=== PATIENT | female | born 1940 | race Caucasian/White ===

== ENCOUNTER 2017-06-08 11:07 | Emergency (ER) | payer OTHER, MEDICARE ==
[~2017-06-08] VITALS: Ht 160 cm; Wt 97.6 kg
[~2017-06-08 11:07] MED LIST: FIORICET,ESG1 TABLET PO; ISOPTIN SR120 MG PO; LEVOTHYROXINE25 MCG PO; MEDROL DOSEPAK4 MG PO; SIMVASTATIN20 MG PO; ZESTORETIC 20-1 EAC1 PO; [UNRECOGNIZED DRUG - OTHER] PO
[2017-06-08 12:38] LABS: APPEARANCE CLEAR ((CLEAR)); BILIRUBIN NEGATIVE; BLOOD SMALL; COLOR STRAW ((YELLOW)); GLUCOSE (STRIP) NEGATIVE; KETONES NEGATIVE; LEUKOCYTES SMALL; NITRITE NEGATIVE; PROTEIN (STRIP) NEGATIVE; SPECIFIC GRAVITY 1.004 (1.000-1.030); UROBILINOGEN 0.2 MG/DL (0.2-1.0)
[2017-06-08 12:41] LABS: BACTERIA RARE /HPF; EPITHELIAL CELLS RARE /HPF; MUCUS TRACE /LPF; RED BLOOD CELLS 0-5 /HPF (0-5); UCUL ADDED? NO; WHITE BLOOD CELLS 0-5 /HPF (0-5)
[2017-06-08 12:41] LABS: BASOPHIL (%) 0.3 % (0-1); EOSINOPHIL (%) 0.3 % (0-5); HEMATOCRIT 38.3 % (36.0-46.0); HEMOGLOBIN 12.7 G/DL (11.9-15.5); IMMATURE GRANULOCYTE (%) 0.3 % (0.0-0.7); LYMPHOCYTE (%) 21.7 % (15-42); LYMPHOCYTE COUNT 1.4 K/uL (1.0-2.8); MCH 31.5 PG (29.0-34.0); MCHC 33.2 G/DL (30.0-36.0); MONOCYTE (%) 15.2 % (3-12); NEUTROPHIL (%) 62.2 % (45-76); NEUTROPHIL COUNT 3.9 K/uL (1.8-6.4); PLATELET COUNT 233 K/uL (156-360); RBC DIS.WIDTH-SD 42.3 % (39-53); RED BLOOD COUNT 4.03 M/uL (3.80-5.20); WHITE BLOOD COUNT 6.2 K/uL (4.1-10.2)
[2017-06-08 12:51] LABS: ALBUMIN 4.4 g/dL (3.2-4.8); CHLORIDE 108 mEq/L (99-109); POTASSIUM 4.2 mEq/L (3.7-5.4); SODIUM 137 mEq/L (136-147)
[2017-06-08 12:53] LABS: GLUCOSE 101 mg/dL (70-99)
[2017-06-08 12:54] LABS: TOTAL PROTEIN 7.2 g/dL (6.4-8.3)
[2017-06-08 12:55] LABS: TOTAL BILIRUBIN 0.3 mg/dL (0.0-1.0)
[2017-06-08 12:57] LABS: ALKALINE PHOSPHATASE 122 IU/L (3-129); CREATININE 1.2 mg/dL (0.6-1.3); GFR ESTIMATE (CALCULATED) 46 mL/min/
[2017-06-08 12:58] LABS: UREA NITROGEN (BUN) 25 mg/dL (9-23)
[2017-06-08 12:59] LABS: AST (GOT) 27 IU/L (2-34)
[2017-06-08 13:00] LABS: ALT (GPT) 31 IU/L (3-49); LIPASE 11 U/L (1.0-51.0)
[2017-06-08] MEDS ORDERED: ZOFRAN ODT4 MG PO (14:21)
[2017-06-08 14:46] VITALS: BP 147/62
== END 2017-06-08 14:48 | disposition home or self-care (01) ==
LOC: EME 11:07
PROVIDERS: Emergency Medicine
DX: K52.9 Noninfective gastroenteritis and colitis, unspecified (principal); K21.9 Gastro-esophageal reflux disease without esophagitis; I10 Essential (primary) hypertension; E78.5 Hyperlipidemia, unspecified; F41.9 Anxiety disorder, unspecified; Z90.49 Acquired absence of other specified parts of digestive tract
CPT/HCPCS: 80053; 81003; 83605; 83690; 85025; 99281; 99285; J7030

== ENCOUNTER 2017-07-05 21:53 | Observation (INO) | payer OTHER, MEDICARE ==
[~2017-07-05] VITALS: Ht 160 cm; Wt 94.5 kg
[~2017-07-05 21:53] MED LIST changes: +ZOFRAN ODT4 MG PO
[2017-07-06 01:11] LABS: BASOPHIL (%) 0.4 % (0-1); BASOPHIL COUNT 0.1 K/uL (0-0.1); EOSINOPHIL COUNT 0.1 K/uL (0-0.3); HEMATOCRIT 36.4 % (36.0-46.0); HEMOGLOBIN 11.9 G/DL (11.9-15.5); IMMATURE GRANULOCYTE (%) 0.3 % (0.0-0.7); MCH 31.3 PG (29.0-34.0); MCHC 32.7 G/DL (30.0-36.0); MCV 95.8 FL (83-99); MONOCYTE (%) 9.4 % (3-12); MONOCYTE COUNT 1.1 K/uL (0-0.8); NEUTROPHIL (%) 71.9 % (45-76); NEUTROPHIL COUNT 8.3 K/uL (1.8-6.4); PLATELET COUNT 294 K/uL (156-360); RBC DIS.WIDTH-CV 12.3 % (11.8-14.6); WHITE BLOOD COUNT 11.6 K/uL (4.1-10.2)
[2017-07-06 01:21] LABS: CHLORIDE 108 mEq/L (99-109); POTASSIUM 4.3 mEq/L (3.7-5.4); SODIUM 143 mEq/L (136-147)
[2017-07-06 01:22] LABS: GLUCOSE 108 mg/dL (70-99)
[2017-07-06 01:26] LABS: CREATININE 0.9 mg/dL (0.6-1.3); GFR ESTIMATE (CALCULATED) > 59 mL/min/
[2017-07-06 01:27] LABS: UREA NITROGEN (BUN) 15 mg/dL (9-23)
[2017-07-06 01:29] LABS: CREATINE KINASE 134 IU/L (1-294)
[2017-07-06 05:39] VITALS: BP 170/74
[2017-07-06 07:30] VITALS: BP 147/71
[2017-07-06 07:48] LABS: THYROTROPIN (TSH) 1.9 MIU/L (0.4-5.5)
[2017-07-06 07:54] VITALS: BP 151/70
[2017-07-06 08:10] LABS: APPEARANCE CLEAR ((CLEAR)); BILIRUBIN NEGATIVE; BLOOD SMALL; COLOR STRAW ((YELLOW)); GLUCOSE (STRIP) NEGATIVE; KETONES NEGATIVE; LEUKOCYTES LARGE; NITRITE NEGATIVE; PROTEIN (STRIP) NEGATIVE; SPECIFIC GRAVITY 1.006 (1.000-1.030); UROBILINOGEN 0.2 MG/DL (0.2-1.0)
[2017-07-06 08:20] LABS: BACTERIA RARE /HPF; EPITHELIAL CELLS RARE /HPF; MUCUS TRACE /LPF; RED BLOOD CELLS 0-5 /HPF (0-5); UCUL ADDED? YES; WHITE BLOOD CELLS 30-40 /HPF (0-5)
[2017-07-06 11:46] VITALS: BP 159/67
[2017-07-06] MEDS ORDERED: ZESTRIL20 MG PO (12:29)
[2017-07-06] MEDS ORDERED: NORVASC10 MG PO (12:30)
[2017-07-06] MEDS ORDERED: PROTONIX40 MG PO (12:30)
[2017-07-06] MEDS ORDERED: ULTRAM50 MG PO (12:30)
[2017-07-06] MEDS ORDERED: SYNTHROID25 MCG PO (12:30)
[2017-07-06] MEDS ORDERED: MOBIC15 MG PO (12:31)
[2017-07-06] MEDS ORDERED: PRAVACHOL80 MG PO (12:31)
[2017-07-06] MEDS ORDERED: CLARITIN10 M3 PO (12:32)
[2017-07-06] MEDS ORDERED: LIBRIUM10 MG PO (12:32)
[2017-07-06] MEDS ORDERED: K-DUR10 MEQ PO (12:32)
[2017-07-06] MEDS ORDERED: TYLENOL ARTHRI650 MG PO (12:32)
[2017-07-06 16:40] VITALS: BP 137/63
[2017-07-06 19:35] VITALS: BP 172/71
[2017-07-07 00:27] VITALS: BP 151/68
[2017-07-07 04:15] VITALS: BP 163/70
[2017-07-07 05:35] LABS: HEMATOCRIT 33.9 % (36.0-46.0); HEMOGLOBIN 10.8 G/DL (11.9-15.5); MCH 30.4 PG (29.0-34.0); MCHC 31.9 G/DL (30.0-36.0); MCV 95.5 FL (83-99); PLATELET COUNT 254 K/uL (156-360); RBC DIS.WIDTH-CV 12.3 % (11.8-14.6); RBC DIS.WIDTH-SD 43.6 % (39-53); RED BLOOD COUNT 3.55 M/uL (3.80-5.20)
[2017-07-07 06:13] LABS: ALBUMIN 3.9 G/DL (3.2-4.8); ALKALINE PHOSPHATASE 95 IU/L (3-129); ALT (GPT) 13 IU/L (3-49); AST (GOT) 14 IU/L (2-34); CHLORIDE 109 MEQ/L (99-109); CREATININE 0.7 MG/DL (0.6-1.3); GFR ESTIMATE (CALCULATED) > 59 mL/min/; GLUCOSE 103 mg/dL (70-99); POTASSIUM 4.1 MEQ/L (3.7-5.4); SODIUM 140 MEQ/L (136-147); TOTAL BILIRUBIN 0.4 MG/DL (0.0-1.0); TOTAL PROTEIN 6.4 G/DL (6.4-8.3); UREA NITROGEN (BUN) 15 mg/dL (9-23)
[2017-07-07 07:56] VITALS: BP 140/62
[2017-07-07] MEDS ORDERED: TRAMADOL HCL50 MG PO (11:51)
[2017-07-07 11:55] VITALS: BP 127/59
[2017-07-07] MEDS ORDERED: NEURONTIN100 MG PO (15:52)
[2017-07-07] MEDS ORDERED: HEPARIN SO5000 UNIT4 SC (15:53)
[2017-07-07] MEDS ORDERED: PAIN & FEVER325 MG PO (15:56)
[2017-07-07] MEDS ORDERED: ZOFRAN4 MG/2 ML IV (15:57)
== END 2017-07-07 14:20 ==
LOC: EME 21:53 → EDOF 07-06 03:48 → 5WEST 07-06 03:48 → EDOF 07-06 03:48 → ENRESERV 07-06 03:50 → 5WEST 07-06 05:19 → ENPENDDIS 07-07 → 5WEST 07-07 14:20
PROVIDERS: Physician Assistant
DX: M79.662 Pain in left lower leg (principal); M79.661 Pain in right lower leg; M51.16 Intervertebral disc disorders with radiculopathy, lumbar region; R29.6 Repeated falls; R53.1 Weakness; E03.9 Hypothyroidism, unspecified; F41.9 Anxiety disorder, unspecified; I10 Essential (primary) hypertension; E78.5 Hyperlipidemia, unspecified; Z90.49 Acquired absence of other specified parts of digestive tract; Z60.2 Problems related to living alone
CPT/HCPCS: 70450; 72148; 72192; 73590; 80048; 80053; 81003; 82550; 82550 91; 84443; 85025; 85027; 87086; 93005; 93970; 94799; 99281; 99285; G0378; G8978 GP CJ; G8979 GP CH; J1644; J7030

== ENCOUNTER 2017-07-07 11:20 | Inpatient (IN) | payer OTHER, MEDICARE ==
[~2017-07-07] VITALS: Ht 160 cm; Wt 96.8 kg
[~2017-07-07 11:20] MED LIST changes: +CLARITIN10 M3 PO; +K-DUR10 MEQ PO; +LIBRIUM10 MG PO; +MOBIC15 MG PO; +NORVASC10 MG PO; +PRAVACHOL80 MG PO; +PROTONIX40 MG PO; +SYNTHROID25 MCG PO; +TYLENOL ARTHRI650 MG PO; +ULTRAM50 MG PO; +ZESTRIL20 MG PO
[2017-07-07] MEDS ORDERED: TRAMADOL HCL50 MG PO (11:51)
[2017-07-07 14:36] VITALS: BP 123/58
[2017-07-07] MEDS ORDERED: NEURONTIN100 MG PO (15:52)
[2017-07-07] MEDS ORDERED: HEPARIN SO5000 UNIT4 SC (15:53)
[2017-07-07] MEDS ORDERED: PAIN & FEVER325 MG PO (15:56)
[2017-07-07] MEDS ORDERED: ZOFRAN4 MG/2 ML IV (15:57)
[2017-07-07 19:36] LABS: FOLIC ACID (FOLATE) > 22.0 NG/ML (5.0-22.0)
[2017-07-08 05:57] VITALS: BP 133/61
[2017-07-09 05:27] VITALS: BP 145/67
[2017-07-09 15:08] VITALS: BP 123/61
[2017-07-10 05:17] VITALS: BP 133/63
[2017-07-10 15:56] VITALS: BP 130/61
[2017-07-10 22:29] LABS: APPEARANCE SL.HAZY ((CLEAR)); BILIRUBIN NEGATIVE; BLOOD SMALL; COLOR YELLOW ((YELLOW)); GLUCOSE (STRIP) NEGATIVE; KETONES NEGATIVE; LEUKOCYTES LARGE; NITRITE NEGATIVE; PROTEIN (STRIP) NEGATIVE; SPECIFIC GRAVITY 1.044 (1.000-1.030); UROBILINOGEN 0.2 MG/DL (0.2-1.0)
[2017-07-10 22:39] LABS: BACTERIA NONE SEEN /HPF; EPITHELIAL CELLS RARE /HPF; MUCUS TRACE /LPF; WHITE BLOOD CELLS TNTC /HPF (0-5)
[2017-07-11 05:48] VITALS: BP 126/81
[2017-07-11 16:15] VITALS: BP 135/61
[2017-07-12 15:32] VITALS: BP 113/56
[2017-07-13 05:16] VITALS: BP 136/65
[2017-07-13 15:14] VITALS: BP 127/59
[2017-07-14 05:58] VITALS: BP 115/56
[2017-07-14 07:33] VITALS: BP 128/60
[2017-07-14 16:03] VITALS: BP 119/55
[2017-07-15 05:47] VITALS: BP 104/55
[2017-07-15 07:06] VITALS: BP 125/60
[2017-07-15 15:06] VITALS: BP 134/60
[2017-07-16 05:35] VITALS: BP 140/65
[2017-07-16 15:36] VITALS: BP 125/60
[2017-07-17 05:49] VITALS: BP 124/58
[2017-07-17 15:06] VITALS: BP 119/56
[2017-07-18 05:49] VITALS: BP 117/58
[2017-07-18 15:25] VITALS: BP 122/56
[2017-07-19 07:07] VITALS: BP 138/69
[2017-07-19 15:24] VITALS: BP 145/63
[2017-07-20 05:50] VITALS: BP 111/53
[2017-07-20 15:51] VITALS: BP 130/61
[2017-07-20 21:34] VITALS: BP 140/64
[2017-07-21 06:45] VITALS: BP 115/59
[2017-07-21 07:32] VITALS: BP 136/60
[2017-07-21 15:02] VITALS: BP 132/60
[2017-07-22 05:39] VITALS: BP 108/61
[2017-07-22 07:17] VITALS: BP 137/68
[2017-07-22 15:30] VITALS: BP 149/66
[2017-07-23 06:22] VITALS: BP 123/61
[2017-07-23 08:46] LABS: HEMATOCRIT 37.2 % (36.0-46.0); MCH 30.8 PG (29.0-34.0); MCHC 32.3 G/DL (30.0-36.0); MCV 95.6 FL (83-99); RBC DIS.WIDTH-CV 11.8 % (11.8-14.6); RED BLOOD COUNT 3.89 M/uL (3.80-5.20); WHITE BLOOD COUNT 8.9 K/uL (4.1-10.2)
[2017-07-23 08:51] LABS: PLATELET COUNT 360 K/uL (156-360)
[2017-07-23 09:09] LABS: ALBUMIN 4.4 G/DL (3.2-4.8); ALKALINE PHOSPHATASE 109 IU/L (3-129); ALT (GPT) 20 IU/L (3-49); AST (GOT) 18 IU/L (2-34); CHLORIDE 103 MEQ/L (99-109); CREATININE 0.9 MG/DL (0.6-1.3); GFR ESTIMATE (CALCULATED) > 59 mL/min/; GLUCOSE 164 mg/dL (70-99); POTASSIUM 3.8 MEQ/L (3.7-5.4); SODIUM 136 MEQ/L (136-147); TOTAL BILIRUBIN 0.4 MG/DL (0.0-1.0); TOTAL PROTEIN 7.6 G/DL (6.4-8.3); UREA NITROGEN (BUN) 20 mg/dL (9-23)
[2017-07-23 14:59] VITALS: BP 135/63
[2017-07-24] MEDS ORDERED: NEURONTIN100 MG PO (01:08)
[2017-07-24] MEDS ORDERED: TRAMADOL HCL50 MG PO (01:08)
[2017-07-24 06:01] VITALS: BP 116/65
== END 2017-07-24 12:40 | disposition home health service (06) | DRG 945 ==
LOC: 3WEST 11:20 → ENPENDDIS 07-25
PROVIDERS: Physical Medicine & Rehabilitation Pain Medicine; Psychiatry & Neurology Neurology
PROC: F07M0ZZ Range of Motion and Joint Mobility Treatment of Musculoskeletal System - Whole Body (ICD-10-PCS; principal; 2017-07-07)
DX: R53.1 Weakness (principal); N39.0 Urinary tract infection, site not specified; R26.89 Other abnormalities of gait and mobility; M51.16 Intervertebral disc disorders with radiculopathy, lumbar region; R20.2 Paresthesia of skin; E03.9 Hypothyroidism, unspecified; E78.5 Hyperlipidemia, unspecified; I10 Essential (primary) hypertension; K59.00 Constipation, unspecified; E53.8 Deficiency of other specified B group vitamins; F41.9 Anxiety disorder, unspecified; G72.9 Myopathy, unspecified; M51.34 Other intervertebral disc degeneration, thoracic region; D18.09 Hemangioma of other sites; Z90.49 Acquired absence of other specified parts of digestive tract; Z60.2 Problems related to living alone; Z80.0 Family history of malignant neoplasm of digestive organs; Z80.8 Family history of malignant neoplasm of other organs or systems
CPT/HCPCS: 72129; 72141; 72146; 80053; 81003; 82306; 82607; 82746; 85027; 85651; 86140; 87086; 97110 GO; 97530 GP; J1644